=== PATIENT | female | born 1990 | race Caucasian/White ===

== ENCOUNTER → 2023-07-21 | Outpatient (REF) | payer OTHER ==
[2023-07-23 15:08] LABS: HPV APTIMA Negative (Negative)
== END ==
LOC: M SFHCWAGY 18:10
PROVIDERS: ATTEND Nurse Practitioner Family
DX: Z12.4 Encounter for screening for malignant neoplasm of cervix (principal); E28.2 Polycystic ovarian syndrome

== ENCOUNTER 2024-03-02 16:51 | Emergency (ER) | payer OTHER ==
[~2024-03-02] VITALS: Ht 157.5 cm; Wt 128.1 kg
[2024-03-02] MEDS ORDERED: SYNT175T2 PO (17:15)
[2024-03-02 19:04] LABS: BASO % 0.3 % (0.0-1.0); EOS # 0.1 10^3/uL (0.0-0.5); EOS % 0.5 % (0.0-3.0); HEMOGLOBIN 15.8 g/dl (12.0-15.5); LYMPH # 2.6 10^3/uL (1.5-5.0); LYMPH % 21.7 % (24.0-44.0); MEAN CORPUSCULAR HEMOGLOBIN 29.5 pg (27.0-33.0); MEAN CORPUSCULAR HGB CONC 35.1 g/dl (32.0-36.5); MONO # 0.6 10^3/uL (0.0-0.8); MONO % 4.9 % (2.0-8.0); NEUTROPHILS # 8.7 10^3/uL (1.5-8.5); NEUTROPHILS % 72.1 % (36.0-66.0); PLATELET COUNT, AUTOMATED 452 10^3/uL (150-450); RED BLOOD COUNT 5.36 10^6/uL (4.00-5.40); WHITE BLOOD COUNT 12.1 10^3/uL (4.0-10.0)
[2024-03-02 19:19] LABS: INR 1.02; PARTIAL THROMBOPLASTIN TIME 29.2 SECONDS (24.8-34.2); PROTHROMBIN TIME 13.7 SECONDS (12.5-14.5)
[2024-03-02 19:35] LABS: HCG, SERUM QUALITATIVE NEGATIVE (NEGATIVE); LIPASE 43 U/L (12-53)
[2024-03-02 19:37] LABS: ALBUMIN 4.3 G/DL (3.2-5.2); ALKALINE PHOSPHATASE 104 U/L (35-104); ALT/SGPT 38 U/L (7.0-40); AST/SGOT 21 U/L (<34); BILIRUBIN,DIRECT 0.5 MG/DL (<0.4); BILIRUBIN,TOTAL 1.6 MG/DL (0.3-1.2); BLOOD UREA NITROGEN 12 MG/DL (9-23); CALCIUM LEVEL 10.1 MG/DL (8.5-10.1); CARBON DIOXIDE LEVEL 26 MMOL/L (20-31); CHLORIDE LEVEL 104 MMOL/L (98-107); CREATININE FOR GFR 0.71 MG/DL (0.55-1.30); GLOMERULAR FILTRATION RATE > 60.0 (>60); GLUCOSE, FASTING 94 MG/DL (60-100); POTASSIUM SERUM 4.2 MMOL/L (3.5-5.1); SODIUM LEVEL 141 MMOL/L (136-145); TOTAL PROTEIN 7.6 G/DL (5.7-8.2)
[2024-03-02 22:05] VITALS: TEMP 99.1
[2024-03-02] MEDS ORDERED: IBUP-1022 PO (23:45)
[2024-03-02] MEDS ORDERED: ONDA-282 PO (23:45)
[2024-03-02 23:58] VITALS: BP 139/90; O2SAT 97
[2024-03-03] MEDS: ONDANSETRON 4MG ORAL DISINTEGRATING TAB PO ONE (00:08)
[2024-03-03] MEDS: IBUPROFEN 600MG TAB PO ONE (00:08)
== END 2024-03-03 00:25 | disposition home or self-care (01) ==
LOC: M ED 16:51
DX: N93.8 Other specified abnormal uterine and vaginal bleeding (principal); N83.202 Unspecified ovarian cyst, left side; Z88.2 Allergy status to sulfonamides; Z97.5 Presence of (intrauterine) contraceptive device; Z79.899 Other long term (current) drug therapy

== ENCOUNTER → 2024-05-04 | Outpatient (CLI) | payer OTHER ==
[~2024-05-04] MED LIST: IBUP-1022 PO; ONDA-282 PO; SYNT175T2 PO
== END ==
LOC: M WHC 11:19
PROVIDERS: ATTEND Nurse Practitioner Family
DX: N83.202 Unspecified ovarian cyst, left side (principal)

== ENCOUNTER → 2024-05-25 | Outpatient (CLI) | payer OTHER ==
[~2024-05-25] MED LIST changes: +PROHANCE 279.3MG/ML 15ML VIAL As Ordered ONE; +PROHANCE 279.3MG/ML 5ML VIAL As Ordered ONE
== END ==
LOC: M RAD 08:44
PROVIDERS: ATTEND Nurse Practitioner Family
DX: D32.0 Benign neoplasm of cerebral meninges (principal)
CPT/HCPCS: 70553; A9576

== ENCOUNTER → 2025-01-12 | Outpatient (CLI) | payer OTHER ==
[~2025-01-12] MED LIST changes: -IBUP-1022 PO; +IBUP600T42 PO; -PROHANCE 279.3MG/ML 15ML VIAL As Ordered ONE; -PROHANCE 279.3MG/ML 5ML VIAL As Ordered ONE
== END ==
LOC: M SLEEP 20:00
PROVIDERS: ATTEND Registered Nurse
DX: R06.83 Snoring (principal)

== ENCOUNTER → 2025-02-07 | Outpatient (CLI) | payer OTHER | LOC: M SOG 10:10 | PROVIDERS: ATTEND Orthopaedic Surgery | DX: S82.62XA Displaced fracture of lateral malleolus of left fibula, initial encounter for closed fracture (principal); Y93.9 Activity, unspecified; Y92.9 Unspecified place or not applicable ==